=== PATIENT | male | born 1970 | race Caucasian/White ===

== ENCOUNTER 2018-03-30 13:25 | Inpatient (IN) | payer BC, OTHER ==
[2018-03-30] MEDS ORDERED: ONDANSETRON HCL 4 MG/2 ML SOL IV ONE ×2 (13:49→15:50)
[2018-03-30] MEDS ORDERED: SODIUM CHLORIDE 0.9% 1000ML 1,000 ML IV ONE (13:49)
[2018-03-30] MEDS ORDERED: ONDANSETRON HCL 4 MG/2 ML SOL ONE ×2 (14:04→15:51)
[2018-03-30 14:09] LABS: BASOPHILS % (AUTO) 0 % (0-3); EOSINOPHILS % (AUTO) 0 % (0-9); HEMATOCRIT 48 % (39-53); HEMOGLOBIN 15.6 gm/dl (13.5-17.7); LYMPHOCYTES % (AUTO) 8.8 % (10-50); MEAN CORPUSCULAR HEMOGLOBIN 28.8 pg (27.0-32.0); MEAN CORPUSCULAR HGB CONC 32.7 gm/dl (32.0-36.0); MEAN CORPUSCULAR VOLUME 88 fL (80-100); MONOCYTES % (AUTO) 4.9 % (0-12)
[2018-03-30 14:12] LABS: CALCIUM 9.6 mg/dl (8.5-10.1); CARBON DIOXIDE 26.7 mEq/L (21-32); CREATININE 1.27 mg/dl (0.80-1.30); POTASSIUM 3.2 mMol/L (3.5-5.1)
[2018-03-30] MEDS: POTASSIUM CHLORIDE 10 MEQ TER PO ONE ×2 (15:08)
[2018-03-30] MEDS ORDERED: POTASSIUM CHLORIDE 10 MEQ TER ONE (15:25)
[2018-03-30] MEDS: POTASSIUM CHLORIDE 2 MEQ/ML SOL IV SCH ×2 (15:30→19:26)
[2018-03-30] MEDS ORDERED: POTASSIUM CHLORIDE 2 MEQ/ML SOL IV ONE (15:39)
[2018-03-30] MEDS ORDERED: LIDOCAINE HCL 1% MPF 30 SOL ONE (15:45)
[2018-03-30] MEDS ORDERED: POTASSIUM CHLORIDE 2 MEQ/ML SOL IV SCH (16:00)
[2018-03-30] MEDS ORDERED: PROMETHAZINE HYDROCHLORIDE 25 MG/ML SOL IV ONE (16:15)
[2018-03-30] MEDS ORDERED: PROMETHAZINE HYDROCHLORIDE 25 MG/ML SOL ONE (16:41)
[2018-03-30] MEDS: POTASSIUM CHLORIDE IV SCH (21:32)
[2018-03-30] MEDS: DEXTROSE IV SCH (21:32)
[2018-03-30] MEDS: SALINE IV SCH (21:32)
[2018-03-31] MEDS: SALINE IV SCH ×3 (05:01→18:46)
[2018-03-31] MEDS: DEXTROSE IV SCH ×3 (05:01→18:46)
[2018-03-31] MEDS: POTASSIUM CHLORIDE IV SCH ×3 (05:01→18:46)
[2018-03-31 07:12] LABS: HEMATOCRIT 41 % (39-53); HEMOGLOBIN 13.7 gm/dl (13.5-17.7); MEAN CORPUSCULAR HEMOGLOBIN 29.5 pg (27.0-32.0); MEAN CORPUSCULAR VOLUME 89 fL (80-100)
[2018-03-31 07:25] LABS: ALBUMIN 3.3 gm/dl (3.4-5.0); BILIRUBIN,TOTAL 0.7 mg/dl (0.2-1.0); CALCIUM 8.4 mg/dl (8.5-10.1); CARBON DIOXIDE 24.9 mEq/L (21-32); CREATININE 1.06 mg/dl (0.80-1.30); POTASSIUM 3.9 mMol/L (3.5-5.1); TOTAL PROTEIN 7.6 gm/dl (6.4-8.2)
[2018-03-31 07:32] LABS: BAND NEUTROPHILS % (MANUAL) 4 %; BASOPHILS % (MANUAL) 0 % (0-3); EOSINOPHILS % (MANUAL) 0 % (0-9); LYMPHOCYTES % (MANUAL) 11 % (10-50); MONOCYTES % (MANUAL) 6 % (0-12); NEUTROPHILS % (MANUAL) 79 % (37-80); NORMAL RBCS PRESENT
[2018-03-31] MEDS: ONDANSETRON 4 MG ODT BU PRN (15:17)
[2018-03-31] MEDS: PANTOPRAZOLE SODIUM 40 MG/10 ML PDS IV SCH (15:17)
[2018-03-31] MEDS: SODIUM CHLORIDE 0.9% FLUSH 10 ML SOL IV PRN (15:18)
[2018-04-01] MEDS ORDERED: ALUMINUM/MAGNESIUM 30 ML SUS PO PRN ×2 (00:05→00:11)
[2018-04-01] MEDS ORDERED: LIDOCAINE HCL 2% (VISCOUS) 15 ML SOL MT PRN (00:07)
[2018-04-01] MEDS: PANTOPRAZOLE SODIUM 40 MG/10 ML PDS IV SCH ×2 (00:09→08:55)
[2018-04-01] MEDS: POTASSIUM CHLORIDE IV SCH ×3 (01:55→16:20)
[2018-04-01] MEDS: SALINE IV SCH ×3 (01:55→16:20)
[2018-04-01] MEDS: DEXTROSE IV SCH ×3 (01:55→16:20)
[2018-04-01] MEDS: ONDANSETRON 4 MG ODT BU PRN (04:51)
[2018-04-01 07:26] LABS: HEMATOCRIT 43 % (39-53); HEMOGLOBIN 14.5 gm/dl (13.5-17.7); MEAN CORPUSCULAR HEMOGLOBIN 29.7 pg (27.0-32.0); MEAN CORPUSCULAR HGB CONC 33.7 gm/dl (32.0-36.0); MEAN CORPUSCULAR VOLUME 88 fL (80-100)
[2018-04-01 07:29] LABS: CALCIUM 8.9 mg/dl (8.5-10.1); CARBON DIOXIDE 26.3 mEq/L (21-32); CREATININE 0.88 mg/dl (0.80-1.30); POTASSIUM 4.3 mMol/L (3.5-5.1)
[2018-04-01 08:28] LABS: BAND NEUTROPHILS % (MANUAL) 0 %; BASOPHILS % (MANUAL) 0 % (0-3); EOSINOPHILS % (MANUAL) 0 % (0-9); LYMPHOCYTES % (MANUAL) 7 % (10-50); MONOCYTES % (MANUAL) 10 % (0-12); NEUTROPHILS % (MANUAL) 83 % (37-80); NORMAL RBCS NORMAL RBCS
[2018-04-01] MEDS: SODIUM CHLORIDE 0.9% FLUSH 10 ML SOL IV PRN (08:55)
[2018-04-01] MEDS: LACTATED RINGERS 1,000 ML IV SCH (16:45)
[2018-04-02] MEDS: LACTATED RINGERS 1,000 ML IV SCH ×2 (02:41→14:44)
[2018-04-02] MEDS: ONDANSETRON 4 MG ODT BU PRN (02:49)
[2018-04-02 07:12] LABS: BASOPHILS % (AUTO) 1 % (0-3); EOSINOPHILS % (AUTO) 1 % (0-9); HEMATOCRIT 49 % (39-53); HEMOGLOBIN 15.8 gm/dl (13.5-17.7); LYMPHOCYTES % (AUTO) 11.1 % (10-50); MEAN CORPUSCULAR HEMOGLOBIN 28.7 pg (27.0-32.0); MEAN CORPUSCULAR HGB CONC 32.5 gm/dl (32.0-36.0); MEAN CORPUSCULAR VOLUME 88 fL (80-100); NEUTROPHILS % (AUTO) 80.5 % (37-80)
[2018-04-02 07:20] LABS: ALBUMIN 3.5 gm/dl (3.4-5.0); BILIRUBIN,TOTAL 0.8 mg/dl (0.2-1.0); CALCIUM 9.2 mg/dl (8.5-10.1); CARBON DIOXIDE 25.5 mEq/L (21-32); CREATININE 0.85 mg/dl (0.80-1.30); POTASSIUM 4.3 mMol/L (3.5-5.1); TOTAL PROTEIN 8.2 gm/dl (6.4-8.2)
[2018-04-02] MEDS: SODIUM CHLORIDE 0.9% FLUSH 10 ML SOL IV PRN (10:30)
[2018-04-02] MEDS: PANTOPRAZOLE SODIUM 40 MG/10 ML PDS IV SCH (10:30)
[2018-04-02] MEDS ORDERED: DEXTROSE/SALINE 0.45/KCL 20MEQ 1,000 ML/1,000 ML SOL IV SCH (21:15)
[2018-04-03 08:07] VITALS: BP 134/87; PULSE 66; RESP 20; TEMP 96.8; O2SAT 96
[2018-04-03] MEDS ORDERED: PROMETHAZINE HYDROCHLORIDE 25 MG/ML SOL IV PRN (08:19)
[2018-04-03] MEDS: PANTOPRAZOLE SODIUM 40 MG/10 ML PDS IV SCH (09:32)
== END 2018-04-03 15:55 | disposition home or self-care (01) | DRG 249 ==
LOC: ED 13:25 → UNDOADMOB 16:18 → ACUTE CARE 16:18 → OBSVTOIN 04-01 16:40
PROVIDERS: ADMIT Family Medicine; ATTEND Family Medicine
DX: A08.4 Viral intestinal infection, unspecified (principal); R19.7 Diarrhea, unspecified
CPT/HCPCS: 36415; 74019; 80048; 80053; 82272; 85007; 85025; 85027; 96365; 96366; 96374; 99219; 99224; 99231; 99284; J2405; J2550; J3480; A9270-GY; J2001

== ENCOUNTER 2018-04-12 08:26 | Day surgery (SDC) | payer BC ==
[~2018-04-12 08:26] MED LIST: LIDOCAINE HCL 1% MPF 30 SOL ONE; PROPOFOL 500 MG/50 ML EMU IV ONE
[2018-04-12 10:15] VITALS: BP 124/89; PULSE 55; RESP 20; TEMP 97.4; O2SAT 99
== END 2018-04-12 11:00 | disposition home or self-care (01) ==
LOC: SURG 08:26
PROVIDERS: ATTEND Surgery
DX: R63.4 Abnormal weight loss (principal); Z68.24 Body mass index [BMI] 24.0-24.9, adult; K62.5 Hemorrhage of anus and rectum; K52.9 Noninfective gastroenteritis and colitis, unspecified; K44.9 Diaphragmatic hernia without obstruction or gangrene; Q39.9 Congenital malformation of esophagus, unspecified; K63.3 Ulcer of intestine; K63.89 Other specified diseases of intestine; K29.70 Gastritis, unspecified, without bleeding
CPT/HCPCS: 99001; J2001; J2704

== ENCOUNTER 2018-08-12 11:52 | Inpatient (IN) | payer OTHER ==
[2018-08-12] MEDS ORDERED: SODIUM CHLORIDE 0.9% 1000ML 1,000 ML IV ONE ×2 (12:37→16:20)
[2018-08-12 13:18] LABS: BASOPHILS % (AUTO) 1 % (0-3); EOSINOPHILS % (AUTO) 0 % (0-9); HEMATOCRIT 49 % (39-53); HEMOGLOBIN 15.8 gm/dl (13.5-17.7); LYMPHOCYTES % (AUTO) 8.5 % (10-50); MEAN CORPUSCULAR HEMOGLOBIN 28.5 pg (27.0-32.0); MEAN CORPUSCULAR HGB CONC 32.5 gm/dl (32.0-36.0); MEAN CORPUSCULAR VOLUME 88 fL (80-100); MONOCYTES % (AUTO) 5.7 % (0-12); NEUTROPHILS % (AUTO) 85.2 % (37-80)
[2018-08-12 13:24] LABS: ALBUMIN 4.1 gm/dl (3.4-5.0); BILIRUBIN,TOTAL 0.7 mg/dl (0.2-1.0); CALCIUM 9.6 mg/dl (8.5-10.1); CARBON DIOXIDE 26.7 mEq/L (21-32); CREATININE 1.08 mg/dl (0.80-1.30); POTASSIUM 3.1 mMol/L (3.5-5.1); TOTAL PROTEIN 9.1 gm/dl (6.4-8.2)
[2018-08-12] MEDS ORDERED: PIPERACILLIN/TAZOBACT 3.375 GM 3.375 GM in SODIUM CHLORIDE 0.9% 100 ML 100 ML IV ONE (14:07)
[2018-08-12] MEDS ORDERED: POTASSIUM CHLORIDE 2 MEQ/ML 40 MEQ, LIDOCAINE HCL 1% MDV 2 ML in SODIUM CHLORIDE 0.9% 5... IV ONE (14:10)
[2018-08-12] MEDS ORDERED: PROCHLORPERAZINE EDISYLATE 5 MG/ML SOL IV ONE (14:19)
[2018-08-12] MEDS ORDERED: PROCHLORPERAZINE EDISYLATE 5 MG/ML SOL ONE (14:20)
[2018-08-12] MEDS ORDERED: POTASSIUM CHLORIDE 2 MEQ/ML SOL IV ONE (14:26)
[2018-08-12] MEDS ORDERED: PIPERACILLIN/TAZOBACT 3.375 GM PDS IV ONE (14:26)
[2018-08-12] MEDS ORDERED: LIDOCAINE HCL 1% MPF 30 SOL ONE (14:31)
[2018-08-12] MEDS ORDERED: EPINEPHRINE 0.3 MG/0.3 ML KIT SC PRN (15:14)
[2018-08-12] MEDS ORDERED: LEVOFLOXACIN 25 MG/ML 750 MG in SODIUM CHLORIDE 0.9% 250 ML 150 ML IV ONE (16:13)
[2018-08-12] MEDS: SODIUM CHLORIDE 0.9% FLUSH 10 ML SOL IV PRN ×3 (16:46→20:27)
[2018-08-12] MEDS ORDERED: SODIUM CHLORIDE 0.9% 250 ML 250 ML IV ONE (16:51)
[2018-08-12] MEDS ORDERED: LEVOFLOXACIN 25 MG/ML SOL IV ONE (16:51)
[2018-08-12] MEDS: METRONIDAZOLE 500 MG (PREMIX) 500 MG/100 ML SOL IV SCH (17:25)
[2018-08-12] MEDS ORDERED: BACLOFEN 10 MG PO PRN (18:30)
[2018-08-12] MEDS: PROCHLORPERAZINE EDISYLATE 5 MG/ML SOL IV PRN (18:43)
[2018-08-12] MEDS ORDERED: DEXTROSE/SALINE 0.45% 1,000 ML IV SCH (21:00)
[2018-08-13] MEDS: SODIUM CHLORIDE 0.9% FLUSH 10 ML SOL IV PRN ×4 (00:01→13:16)
[2018-08-13] MEDS: PROCHLORPERAZINE EDISYLATE 5 MG/ML SOL IV PRN ×2 (00:39→07:52)
[2018-08-13 07:48] LABS: BASOPHILS % (AUTO) 1 % (0-3); EOSINOPHILS % (AUTO) 0 % (0-9); HEMATOCRIT 44 % (39-53); HEMOGLOBIN 14.4 gm/dl (13.5-17.7); LYMPHOCYTES % (AUTO) 12.1 % (10-50); MEAN CORPUSCULAR HEMOGLOBIN 28.9 pg (27.0-32.0); MEAN CORPUSCULAR HGB CONC 32.7 gm/dl (32.0-36.0); MEAN CORPUSCULAR VOLUME 88 fL (80-100); MONOCYTES % (AUTO) 6.3 % (0-12); NEUTROPHILS % (AUTO) 80.7 % (37-80)
[2018-08-13] MEDS: METRONIDAZOLE 500 MG (PREMIX) 500 MG/100 ML SOL IV SCH ×2 (07:56)
[2018-08-13 07:58] LABS: CALCIUM 8.8 mg/dl (8.5-10.1); CREATININE 0.9 mg/dl (0.80-1.30); CRP INFLAMMATORY 0.77 mg/dl (0.00-0.33); POTASSIUM 3.4 mMol/L (3.5-5.1)
[2018-08-13] MEDS ORDERED: BACLOFEN 10 MG TAB PO PRN (09:45)
[2018-08-13] MEDS ORDERED: POTASSIUM CHLORIDE 2 MEQ/ML 40 MEQ, LIDOCAINE HCL 1% MDV 2 ML in SODIUM CHLORIDE 0.9% 5... IV ONE (11:02)
[2018-08-13] MEDS ORDERED: PROMETHAZINE HYDROCHLORIDE 25 MG/ML SOL IV PRN (11:05)
[2018-08-13] MEDS ORDERED: SODIUM CHLORIDE 0.9% 1000ML 1,000 ML IV ONE (11:05)
[2018-08-13] MEDS ORDERED: LIDOCAINE HCL 1% MPF 30 SOL ONE (12:05)
[2018-08-13] MEDS ORDERED: POTASSIUM CHLORIDE 2 MEQ/ML SOL IV ONE (12:05)
[2018-08-13 16:45] VITALS: BP 150/96; PULSE 72; RESP 14; TEMP 99; O2SAT 96
[2018-08-13] MEDS ORDERED: PROCHLORPERAZINE MALEATE 5 MG TAB PO ONE (17:59)
== END 2018-08-13 18:25 | disposition home or self-care (01) | DRG 249 ==
LOC: ED 11:52 → ACUTE CARE 14:45
PROVIDERS: ADMIT Family Medicine; ATTEND Family Medicine
DX: K52.9 Noninfective gastroenteritis and colitis, unspecified (principal); E86.0 Dehydration; R11.10 Vomiting, unspecified; D72.829 Elevated white blood cell count, unspecified
CPT/HCPCS: 36415; 74176; 80048; 80053; 84132; 85025; 96365; 96374; 99070; 99221; 99238; 99283; J0780; J1956; J2543; J2550; J3480; A9270-GY; J2001; J3490

== ENCOUNTER 2018-10-09 20:34 | Emergency (ER) | payer OTHER ==
[2018-10-09] MEDS ORDERED: ONDANSETRON HCL 4 MG/2 ML SOL ONE (20:50)
[2018-10-09] MEDS ORDERED: ONDANSETRON HCL 4 MG/2 ML SOL IV ONE (20:53)
[2018-10-09] MEDS ORDERED: PROMETHAZINE HYDROCHLORIDE 25 MG/ML SOL IV ONE ×3 (21:00→23:46)
[2018-10-09] MEDS ORDERED: SODIUM CHLORIDE 0.9% 1000ML 1,000 ML IV ONE ×3 (21:00→22:01)
[2018-10-09] MEDS ORDERED: PROMETHAZINE HYDROCHLORIDE 25 MG/ML SOL ONE ×2 (21:03→23:50)
[2018-10-09 21:15] VITALS: RESP 20
[2018-10-09 21:26] LABS: HEMATOCRIT 48 % (39-53); HEMOGLOBIN 15.5 gm/dl (13.5-17.7); MEAN CORPUSCULAR HEMOGLOBIN 28.3 pg (27.0-32.0); MEAN CORPUSCULAR HGB CONC 32.2 gm/dl (32.0-36.0); MEAN CORPUSCULAR VOLUME 88 fL (80-100)
[2018-10-09 21:33] LABS: ALBUMIN 3.9 gm/dl (3.4-5.0); BILIRUBIN,TOTAL 0.8 mg/dl (0.2-1.0); CALCIUM 9.6 mg/dl (8.5-10.1); CARBON DIOXIDE 24.7 mEq/L (21-32); POTASSIUM 3.5 mMol/L (3.5-5.1); TOTAL PROTEIN 9.2 gm/dl (6.4-8.2)
[2018-10-09 21:45] LABS: BAND NEUTROPHILS % (MANUAL) 4 %; BASOPHILS % (MANUAL) 0 % (0-3); EOSINOPHILS % (MANUAL) 0 % (0-9); LYMPHOCYTES % (MANUAL) 5 % (10-50); MONOCYTES % (MANUAL) 2 % (0-12); NEUTROPHILS % (MANUAL) 89 % (37-80)
[2018-10-09 21:46] LABS: NORMAL RBCS PRESENT
[2018-10-09 23:36] VITALS: BP 127/89; PULSE 61; TEMP 97.8; O2SAT 97
[2018-10-09 23:39] LABS: APPEARANCE,URINE Clear; BILIRUBIN,URINE NEGATIVE (NEGATIVE); COLOR,URINE Dark yellow; GLUCOSE, URINE (UA) NEGATIVE (NEGATIVE); KETONES,URINE 4+ (NEGATIVE); LEUKOCYTE ESTERASE ,URINE NEGATIVE (NEGATIVE); NITRATE,URINE NEGATIVE (NEGATIVE); OCCULT BLOOD,URINE NEGATIVE (NEG-TRACE); UROBILINOGEN,URINE 0.2 (0.2-1.0 EU)
[2018-10-09 23:53] LABS: RBC,URINE 0-2 (0-3AV/HPF)
[2018-10-09 23:54] LABS: AMPHETAMINES NEGATIVE (NEGATIVE); BACTERIA 1+ (< 1+); BARBITUATES NEGATIVE (NEGATIVE); BENZODIAZEPINES NEGATIVE (NEGATIVE); CANNABINOL(THC) NEGATIVE (NEGATIVE); COCAINE(COC) NEGATIVE (NEGATIVE); CRYSTALS 1+ AMORPH URATES (0-3 AVE/HPF); METHAMPHETAMINES NEGATIVE (NEGATIVE); OPIATES(OPI) NEGATIVE (NEGATIVE); OXYCODONE(OXY) NEGATIVE (NEGATIVE); PROPOXYPHENE(PPX) NEGATIVE (NEGATIVE)
[2018-10-10] MEDS ORDERED: ONDANSETRON HCL 4 MG/2 ML SOL IV ONE (00:37)
[2018-10-10] MEDS ORDERED: SOLUMEDROL 125 MG/2 ML 125 MG/2 ML PDS IV ONE (00:39)
[2018-10-10] MEDS ORDERED: SOLUMEDROL 125 MG/2 ML 125 MG/2 ML PDS ONE (00:53)
[2018-10-10] MEDS ORDERED: ONDANSETRON HCL 4 MG/2 ML SOL ONE (00:53)
[2018-10-10] MEDS ORDERED: KETOROLAC TROMETHAMINE 30 MG/ML SOL IV ONE (01:03)
[2018-10-10] MEDS ORDERED: KETOROLAC TROMETHAMINE 30 MG/ML SOL ONE (01:03)
[2018-10-10] MEDS ORDERED: LACTATED RINGERS 1,000 ML IV ONE (01:06)
== END 2018-10-10 02:06 | disposition short-term general hospital (02) ==
LOC: ED 20:34
DX: E86.0 Dehydration (principal); R11.2 Nausea with vomiting, unspecified; K52.9 Noninfective gastroenteritis and colitis, unspecified; R19.7 Diarrhea, unspecified; F12.90 Cannabis use, unspecified, uncomplicated
CPT/HCPCS: 36415; 74176; 80053; 80305; 81001; 83690; 85007; 85027; 96365; 96366; 96374; 96375; 99283; 99285; J1885; J2405; J2550; J2930